=== PATIENT | male | born 1965 | race Caucasian/White ===

== ENCOUNTER 2018-02-22 21:01 | Emergency (ER) | payer SELFPAY ==
[~2018-02-22] VITALS: Ht 172.7 cm; Wt 65.0 kg
[2018-02-22 21:04] VITALS: BP 127/62
== END 2018-02-22 21:10 ==
LOC: ED 21:04
DX: K64.9 Unspecified hemorrhoids (principal); Z53.21 Procedure and treatment not carried out due to patient leaving prior to being seen by health care provider